=== PATIENT | female | born 1965 | race Caucasian/White ===

== ENCOUNTER 2017-08-17 12:10 | Emergency (ER) | payer MEDICAID ==
[2017-08-17] MEDS: KETOROLAC 30 MG INJ IM (14:39)
[2017-08-17 14:53] LABS: ADD UMIC YES; UR ASCORBIC ACID NEGATIVE (NEGATIVE); UR BACTERIA FEW /HPF (NONE SEEN); UR BILIRUBIN (Dip) NEGATIVE (NEGATIVE); UR BLOOD (Dip) 2+ mg/dL (NEGATIVE); UR CLARITY SLIGHTLY CLOUDY (CLEAR); UR COLOR YELLOW (YELLOW); UR GLUCOSE (Dip) NEGATIVE (NEGATIVE); UR KETONES (Dip) NEGATIVE (NEGATIVE); UR LEUKOCYTE ESTERASE (Dip) 3+ Leu/ul (NEGATIVE); UR NITRITE (Dip) NEGATIVE (NEGATIVE); UR RBC 6 /HPF (0-5); UR SPECIFIC GRAVITY (Dip) 1.008 (1.003-1.030); UR SQUAMOUS EPITHELIAL CELL FEW /HPF (FEW); UR TOTAL PROTEIN (Dip) NEGATIVE (NEGATIVE); UR UROBILINOGEN (Dip) NEGATIVE (NEGATIVE); UR WBC 6 /HPF (0-5)
== END 2017-08-17 16:44 | disposition home or self-care (01) ==
LOC: FTE 16:44
DX: J18.1 Lobar pneumonia, unspecified organism (principal)
CPT/HCPCS: 71010; 81001; 87086; 87400; 93005; 96372; 99285-25